=== PATIENT | female | born 1995 | race African-American/Black ===

== ENCOUNTER 2017-03-31 15:48 | Emergency (ER) | payer BC ==
[~2017-03-31] VITALS: Ht 160 cm; Wt 98.9 kg
--- NOTE | ~2017-03-31 | EKG ---
[address] [address] ELECTROCARDIOGRAM REPORT Name: MADALYN COELLO [facility]: [facility] COUNTY[facility]ill[facility] [id number] Admission: 03/31/17 Attend Phys: Discharge: Date of : [birth year] Report #: [id number] THIS REPORT FOR: //name// [facility] ED Test Date: 2017-03-31 Test Time: 16:08:52 Pat Name: MADALYN COELLO Department: Room: Gender: F Radiologic Technician: MZOOK : 1995 Requested By: Abelino Díaz Order Number: [id number] MD: Zafar Cummings Measurements Intervals [place] Rate: 88 P: 19 AK: 143 QRS: 20 QRSD: 80 T: 29 QT: 342 QTc: 414 Interpretive Statements Sinus rhythm No previous ECG available for comparison Electronically Signed On 03-31-2017 16:52:38 ENVIRONMENTAL CONTROL ADMINISTRATOR by Zafar Cummings [email or web address] <ELECTRONICALLY SIGNED> By: Zafar Cummings MD 03/31/17 1652 1608 1608 Zafar Cummings MD /EPI
[2017-03-31 16:28] LABS: ABSOLUTE NEUTROPHILS 5.1 thou/uL (1.4-8.2); EOSINOPHILS 1.9 % (0.0-3.0); HEMATOCRIT 39.9 % (37.0-47.0); HEMOGLOBIN 12.9 gm/dL (12.0-15.0); LYMPHOCYTES 32.7 % (24.0-44.0); MCH 25.8 pg (26.0-34.0); MCHC 32.4 g/dL (28.0-37.0); MCV 79.6 fL (80.0-100.0); MONOCYTES 8.5 % (1.0-8.0); PLATELET COUNT 385 thou/uL (150-400); POLYS 55.9 % (36.0-66.0); RBC 5.01 mil/uL (4.20-5.00); RDW 15.5 % (10.5-14.5); WBC 9.2 thou/uL (4.0-11.0)
[2017-03-31 16:33] LABS: MANUAL DIFF NO
[2017-03-31 16:35] LABS: ANION GAP 6 mmol/L (7-16); BUN 11 mg/dL (7-18); CALCIUM 9.7 mg/dL (8.5-10.1); CHLORIDE 103 mmol/L (98-107); CO2 30 mmol/L (21-32); CREATININE 0.9 mg/dL (0.6-1.0); GLUCOSE 117 mg/dL (74-106); POTASSIUM 3.9 mmol/L (3.5-5.1); SODIUM 139 mmol/L (136-145)
[2017-03-31 16:44] LABS: TROPONIN-I < 0.04 ng/mL (<0.06)
[2017-03-31 17:20] LABS: URINE BILIRUBIN NEGATIVE (Negative); URINE BLOOD NEGATIVE (Negative); URINE COLOR YELLOW; URINE GLUCOSE-RANDOM* NEGATIVE (Negative); URINE KETONES NEGATIVE (Negative); URINE NITRITE NEGATIVE (Negative); URINE PROTEIN (DIPSTICK) NEGATIVE (Negative); URINE SPECIFIC GRAVITY 1.015 (1.005-1.035); URINE UROBILINOGEN 0.2 E.U./dl (0.2-1.0)
[2017-03-31] MEDS ORDERED: NAPROSYN500 MG PO (18:04)
[2017-03-31 18:18] VITALS: BP 111/72
== END 2017-03-31 18:30 | disposition home or self-care (01) ==
LOC: ER 15:48
PROVIDERS: Nurse Practitioner
DX: R07.89 Other chest pain (principal)